=== PATIENT | male | born 1970 | race Caucasian/White ===

== ENCOUNTER → 2019-05-11 | Day surgery (SDC) | payer BC ==
[2019-05-08 13:06] LABS: BASOPHILS % 0.3 % (0.0-1.0); EOSINOPHILS # (AUTO) 0.5 (0.0-0.4); EOSINOPHILS % 5.8 % (0.0-6.0); HEMATOCRIT 39.8 % (38.2-49.6); HEMOGLOBIN 13.9 g/dL (14.0-18.0); LYMPHOCYTES # (AUTO) 1.9 (1.0-3.2); LYMPHOCYTES % 20.7 % (18.0-39.1); MEAN CORPUSCULAR HEMOGLOBIN 28.9 pg (28-32); MEAN CORPUSCULAR HGB CONC 34.9 g/dL (31-35); MEAN CORPUSCULAR VOLUME 82.7 fL (81-99); MONOCYTES # (AUTO) 1.2 (0.2-0.8); MONOCYTES % 13.2 % (4.4-11.3); NEUTROPHILS # (AUTO) 5.5 (2.1-6.9); NEUTROPHILS % 59.6 % (38.7-80.0); PLATELET COUNT 215 x10e3/uL (140-360); RED BLOOD COUNT 4.81 x10e6/uL (4.3-5.7); RED CELL DISTRIBUTION WIDTH 13.7 % (11.7-14.4)
[2019-05-08 13:22] LABS: ANION GAP 12.2 mmol/L (8-16); BLOOD UREA NITROGEN 17 mg/dL (7-26); BUN/CREATININE RATIO 14 (6-25); CALCIUM 9.1 mg/dL (8.4-10.2); CARBON DIOXIDE 25 mmol/L (22-29); CHLORIDE 101 mmol/L (98-107); CREATININE, SERUM 1.19 mg/dL (0.72-1.25); EST GLOMERULAR FILTRATION RATE > 60 ML/MIN (60-); GLUCOSE 154 mg/dL (74-118); POTASSIUM 4.2 mmol/L (3.5-5.1); SODIUM 134 mmol/L (136-145)
--- NOTE | 2019-05-08 13:39 | Diagnostic Imaging Report ---
EXAMINATION: CHEST 2 VIEWS INDICATION: Pre-operative COMPARISON: None FINDINGS: LINES/TUBES:None LUNGS:The lungs are well-inflated. No focal consolidation or pulmonary edema. PLEURA:No pleural effusion or pneumothorax. MEDIASTINUM:The cardiomediastinal silhouette appears normal in size and shape. BONES/SOFT TISSUES:No acute osseous injury. ABDOMEN:No free air under the diaphragm. IMPRESSION: No focal pneumonia or pulmonary edema. Signed by: Lili Gonzales MD on 05/08/2019 1:36 PM
[~2019-05-11] MED LIST: ATORVASTATIN CA10 MG PO; BUPIVACAINE HCL 0.5% INJ 30 ML VIAL INJ ONE; CRESTOR10 MG PO; DEXAMETHASONE SOD PHOS INJ 4 MG/ML VIAL ONE; FENTANYL CITRATE/PF 100MCG/2 ML INJ ONE; KETOROLAC TROMETHAMINE 30 MG/ML VIAL ONE; LIDOCAINE HCL 2% LOCAL INJ 5 ML SDV VIAL INJ ONE; LISINOPRIL-HCT1 EAC2 PO; LISINOPRIL2.5 MG PO; METFORMIN HCL500 MG PO; MIDAZOLAM HCL 2 MG/2 ML VIAL ONE; MUPIROCIN 2% OINT 22 GM TUBE ONE; NEOSTIGMINE 1 MG/ML 10ML VIAL ONE; ONDANSETRON HCL INJ 2MG/ML 2ML 2 MG/ML VIAL ONE; PROPOFOL IV EMULSION 10 MG/ML 20 ML VIAL ONE; SEVOFLURANE INHAL SOLN 250 ML PEN BTL ONE; VANCOMYCIN 1GM/NS 250 ML 250 ML ONE
--- OUTSIDE RECORDS SUMMARY | 2019-05-11 05:39 | XMS REPORT ---
[facility] Address Unknown Phone Unavailable Care Team Providers Care Bunch Trimmer Mold Name Role Phone MEGAN THOMPSON Unavailable Unavailable Problems This patient has no known problems. Allergies, Adverse Reactions, Alerts This patient has no known allergies or adverse reactions. Medications This patient has no known medications. Results Test Description Test Time Test Comments Text Results Atomic Results Result Comments CHEST 2 VIEWS 2019-05-08 13:35:00 [facility] [address] [place], [place] [address] Patient Name: NIRMAL CHUN MR #: [id number] : 1970 Age/Sex: 49/M Req #: [id number] Adm Physician: Ordered by: MEGAN THOMPSON DPM Report #: [id number] Location: OR Room/Bed: Procedure: [id number] DX/CHEST 2 VIEWS Exam Date: 05/08/19 Exam Time: 1252 REPORT STATUS: Signed EXAMINATION: CHEST 2 VIEWS INDICATION: Pre-operative COMPARISON: None FINDINGS: LINES/TUBES:None LUNGS:The lungs are well-inflated. No focal consolidation or pulmonary edema. PLEURA:No pleural effusion or pneumothorax. MEDIASTINUM:The cardiomediastinal silhouette appears normal in size and shape. BONES/SOFT TISSUES:No acute osseous injury. ABDOMEN:No free air under the diaphragm. IMPRESSION: No focal pneumonia or pulmonary edema. Signed by: Rene Pichardo MD on 05/08/2019 1:36 PM Dictated By: RENE PICHARDO MD [id number] Transcribed By: AVERY BERRY on 05/08/191335 COPY TO: MEGAN THOMPSON DPM
--- OUTSIDE RECORDS SUMMARY | 2019-05-11 05:39 | XMS REPORT ---
Author Author Gloria Alvarenga [facility] eClinicalWorks Address Unknown Phone Unavailable Care Team Providers Care Human Resources Communications Manager Name Role Phone Gloria Alvarenga CP Unavailable Allergies, Adverse Reactions, Alerts Substance Reaction Event Type penicillin rash Drug Allergy sulfa vomiting Drug Allergy Iodine anaphylaxis Drug Allergy Encounters Encounter Location Date DM, HTN, HLP [place] Jun 05, 2015 [place], DM, HTN, HLP, R-Ankle Pain Gloria Alvarenga [place], [place] November 27, 2015 [place] Sep 09, 2014 DM, HTN, HLP [place], [place] December 06, 2014 DM, HTN, HLP [place], [place] March 06, 2015 Problems Problem Type Condition ICD-9 Code Onset Dates Condition Status Assessment DM w/o complication type II E11.9 Active Assessment Achilles tendinitis of right lower extremity M76.61 Active Assessment Abnormal LFTs R79.89 Active Problem DM w/o complication type II E11.9 Active Problem Other and unspecified hyperlipidemia E78.5 Active Problem BMI 34.0-34.9,adult Z68.34 Active Assessment Routine medical exam Z00.00 Active Assessment Other dyspnea and respiratory abnormality R06.09 Active Problem Essential hypertension I10 Active Problem Vitamin D deficiency E55.9 Active Assessment Vitamin D deficiency E55.9 Active Assessment Essential hypertension I10 Active Assessment Other and unspecified hyperlipidemia E78.5 Active Medications Medication Code System Code Instructions Start Date End Date Status Dosage [facility] [address]-32 7.5 MG Orally Once a day November 27, 2015 Active 1 tablet with food prn pain [facility] [address]-23 500 mg Orally Once a day Jun 05, 2015 Active 1 tablet with evening meal Lisinopril-Hydrochlorothiazide [facility] [address]-08 10-12.5 MG Orally Once a day Jun 05, 2015 Active 1 tablet Vitamin D3 [facility] [place] [address]-18 2000 UNIT Orally Active Unknown Atorvastatin Calcium [facility] [place] [address]-50 10 mg by mouth once a day Active 1 tablet Zithromax Z-Vance [facility] [place] [address]-51 250 MG Orally Once a day Aug 28, 2015 Active 2 tablets on the first day, then 1 tablet daily for 4 days Social History Social History Element Qualifiers Date Reported Tobacco Use: . Are you a: current smoker, How many packs per day? < 1 pack per day November 27, 2015 Do you drink alcohol? . Status: Yes, Type: Beer, Liquor, Socially November 27, 2015 Vital Signs Date/Time: November 27, 2015 Weight 262 lbs Height 71 in Temperature 98.8 F Cardiac Monitoring Heart Rate 93 /min Blood Pressure Diastolic 91 mm Hg Blood Pressure Systolic 141 mm Hg Results ELECTROCARDIOGRAM, COMPLETE 4958 VITAMIN D, 25 [place] Summary Purpose eClinicalWorks Submission
--- OUTSIDE RECORDS SUMMARY | 2019-05-11 05:39 | XMS REPORT | Continuity of Care Document ---
Author Author [employer] Address Unknown Phone Unavailable Care Team Providers Care Ekg Monitor Tech Name Role Phone [employer] Unavailable Unavailable Problems Problem Status Onset Date Classification Date Reported Comments Source DM w/o complication type II Active Problem 09/15/2016 Gloria Alvarenga Achilles tendinitis of right lower extremity Active Diagnosis 12/01/2015 Gloria Alvarenga Abnormal LFTs Active Diagnosis 06/04/2016 Gloria Alvarenga Other and unspecified hyperlipidemia Active Problem 09/15/2016 Gloria Alvarenga BMI 34.0-34.9,adult Active Problem 06/04/2016 Gloria Alvarenga Routine medical exam Active Diagnosis 12/01/2015 Gloria Alvarenga Other dyspnea and respiratory abnormality Active Diagnosis 12/01/2015 Gloria Alvarenga Essential hypertension Active Diagnosis 09/15/2016 Gloria Alvarenga Vitamin D deficiency Active Diagnosis 09/15/2016 Gloria Alvarenga Vitamin D deficiency Active Diagnosis 03/23/2015 Gloria Alvarenga Weight gain Active Diagnosis 03/23/2015 Gloriaamanda Alvarenga Hyperlipidemia Active Problem 03/23/2015 Gloriaamanda Alvarenga Essential hypertension Active Problem 03/23/2015 Gloria Alvarenga Type II diabetes mellitus Active Problem 03/23/2015 Gloria Alvarenga Other chest pain Active Diagnosis 06/15/2015 Gloria Alvarenga Anger Active Diagnosis 06/15/2015 Gloria Alvarenga Shaking Active Diagnosis 06/15/2015 Gloria Alvarenga Tension-type headache, not intractable, unspecified chronicity pattern Active Diagnosis 06/15/2015 Gloria Alvarenga Weakness Active Diagnosis 06/15/2015 Gloria Alvarenga Change in bowel habit Active Diagnosis 06/04/2016 Gloria Alvarenga Hematuria Active Diagnosis 03/12/2016 Gloria Alvarenga Acute gastroenteritis Active Diagnosis 05/07/2016 Gloria Alvarenga Dehydration Active Diagnosis 05/07/2016 Gloria Alvarenga Acute renal failure, unspecified acute renal failure type Active Diagnosis 05/07/2016 Gloria Alvarenga Leg weakness, bilateral Active Diagnosis 09/15/2016 Gloria Alvarenga BMI 35.0-35.9,adult Active Diagnosis 09/15/2016 Gloria Alvarenga Somnolence Active Diagnosis 09/15/2016 Gloria Alvarenga Medications Medication Details Route Status Patient Instructions Ordering Provider Order Date Source Lisinopril-Hydrochlorothiazide 1 tablet Orally Active 10-12.5 MG Orally Once a day Alvarenga 09/02/2016 Gloria Alvarenga Rosuvastatin Calcium 1 tablet Orally Active 10 MG Orally Once a day Alvarenga 05/30/2016 Gloria Alvarenga Atorvastatin Calcium 1 tablet by mouth No Longer Active 10 mg by mouth once a day Alvarenga 05/27/2016 Gloria Alvarenga Meloxicam 1 tablet with food prn pain Orally Active 7.5 MG Orally Once a day [facility] 11/27/2015 Gloira Alvarenga Zithromax Z-Vance 2 tablets on the first day, then 1 tablet daily for 4 days Orally Active 250 MG Orally Once a day [facility] 08/28/2015 Gloria Alvarenga MetFORMIN HCl ER 1 tablet with evening meal Orally Active 500 mg Orally Once a day Alvarenga 06/05/2015 Gloria Alvarenga Lisinopril-Hydrochlorothiazide 1 tablet Orally Active 10-12.5 MG Orally Once a day [facility] 06/05/2015 Gloria Alvarenga Atorvastatin Calcium 1 tablet Orally Active 10 mg Orally Once a day [facility] 12/06/2014 Gloria Alvarenga Vitamin D3 Unknown Orally Active 2000 UNIT Orally Alvarenga Gloria Alvarenga Atorvastatin Calcium 1 tablet by mouth Active 10 mg by mouth once a day [facility] Gloria Alvarenga Lisinopril-Hydrochlorothiazide 1 tablet Orally Active 10-12.5 MG Orally Once a day Lyle Alvarenga Allergies, Adverse Reactions, Alerts Substance Category Reaction Severity Reaction type Status Date Reported Comments Source penicillin Adverse Reaction rash Adverse Reaction Active 09/02/2016 Gloria Alvarenga sulfa Adverse Reaction vomiting Adverse Reaction Active 09/02/2016 Gloria Alvarenga Iodine Adverse Reaction anaphylaxis Adverse Reaction Active 09/02/2016 Gloria Alvarenga Immunizations Immunization Date Given Site Status Last Updated Comments Source Influenza 05/27/2016 completed Gloria Alvarenga Results No Data Provided for This Section Pathology Reports No Data Provided for This Section Diagnostic Reports No Data Provided for This Section Consultation Notes No Data Provided for This Section Discharge Summaries No Data Provided for This Section History and Physicals No Data Provided for This Section Vital Signs Vital Sign Value Date Comments Source Weight 254 09/02/2016 Gloria Alvarenga Height 71 09/02/2016 Gloria Alvarenga Temperature Oral (F) 97.9 F 09/02/2016 Gloria Alvarenga Heart Rate 77 09/02/2016 Gloria Alvarenga Diastolic (mm Hg) 79 09/02/2016 Gloria Alvarenga Systolic (mm Hg) 132 09/02/2016 Gloria Alvarenga Weight 258 05/27/2016 Gloria Alvarenga Height 71 05/27/2016 Gloria Alvarenga Temperature Oral (F) 97.9 F 05/27/2016 Gloria Alvarenga Heart Rate 83 05/27/2016 Gloria Alvarenga Diastolic (mm Hg) 74 05/27/2016 Gloria Alvarenga Systolic (mm Hg) 132 05/27/2016 Gloria Alvarenga Weight 264 04/27/2016 Gloria Alvarenga Height 71 04/27/2016 Gloria Alvarenga Temperature Oral (F) 97.8 F 04/27/2016 Gloria Alvarenga Heart Rate 84 04/27/2016 Gloria Alvarenga Diastolic (mm Hg) 83 04/27/2016 Gloria Alvarenga Systolic (mm Hg) 148 04/27/2016 Gloria Alvarenga Weight 260 02/26/2016 Gloria Alvarenga Height 71 02/26/2016 Gloria Alvarenga Temperature Oral (F) 98.3 F 02/26/2016 Gloria Alvarenga Heart Rate 96 02/26/2016 Gloria Alvarenga Diastolic (mm Hg) 80 02/26/2016 Gloria Alvarenga Systolic (mm Hg) 121 02/26/2016 Gloria Alvarenga Weight 262 11/27/2015 Gloria Alvarenga Height 71 11/27/2015 Gloria Alvarenga Temperature Oral (F) 98.8 F 11/27/2015 Gloria Alvarenga Heart Rate 93 11/27/2015 Gloira Alvarenga Diastolic (mm Hg) 91 11/27/2015 Gloria Alvarenga Systolic (mm Hg) 141 11/27/2015 Gloria Alvarenga Weight 249 06/05/2015 Gloria Alvarenga Height 71 06/05/2015 Gloria Alvarenga Temperature Oral (F) 98.6 F 06/05/2015 Gloria Alvarenga Heart Rate 85 06/05/2015 Gloria Alvarenga Diastolic (mm Hg) 83 06/05/2015 Gloria Alvarenga Systolic (mm Hg) 136 06/05/2015 Gloria Alvarenga Weight 257 03/06/2015 Gloria Alvarenga Height 71 03/06/2015 Glroia Alvarenga Temperature Oral (F) 98.2 F 03/06/2015 Gloria Alvarenga Heart Rate 97 03/06/2015 Gloria Alvarenga Diastolic (mm Hg) 88 03/06/2015 Gloria Alvarenga Systolic (mm Hg) 135 03/06/2015 Gloria Alvarenga Encounters Location Location Details Encounter Type Encounter Number Reason For Visit Attending Provider ADM Date DC Date Status Source Gloria Al[place]renga [place], [place] MAR [id number] 09/09/2014 09/09/2014 Gloria Alvarenga MD, [place] [id number] 09/09/2014 09/09/2014 [place] [id number] 09/09/2014 09/09/2014 Gloria Alvarenga MD, [place] [id number] 09/09/2014 09/09/2014 [place] [id number] 09/09/2014 09/09/2014 Gloria Alvarenga MD, [place] [id number] 09/09/2014 09/09/2014 [place] [id number] 09/09/2014 09/09/2014 Gloria Alvarenga MD, [place] [id number] 09/09/2014 09/09/2014 Gloria Alvarenga MD, [place] DM, HTN, HLP [id number] 12/06/2014 12/06/2014 Gloria Alvarenga MD, [place] DM, HTN, HLP [id number] 12/06/2014 12/06/2014 Gloria Alvarenga MD, [place] DM, HTN, HLP [id number] 12/06/2014 12/06/2014 Gloria Alvarenga MD, [place] DM, HTN, HLP [id number] 12/06/2014 12/06/2014 Gloria Alvarenga MD, [place] DM, HTN, HLP [id number] 12/06/2014 12/06/2014 Gloria Alvarenga MD, [place] DM, HTN, HLP [id number] 12/06/2014 12/06/2014 Gloria Alvarenga MD, [place] DM, HTN, HLP [id number] 12/06/2014 12/06/2014 Gloria Alvarenga MD, [place] DM, HTN, HLP [id number] 12/06/2014 12/06/2014 Gloria Alvarenga MD, PA DM, HTN, HLP [id number] 03/06/2015 03/06/2015 Gloria Alvarenga MD, [place] DM, HTN, HLP [id number] 03/06/2015 03/06/2015 Gloria Alvarenga MD, [place] DM, HTN, HLP [id number] 03/06/2015 03/06/2015 Gloria Alvarenga MD, [place] DM, HTN, HLP [id number] 03/06/2015 03/06/2015 Gloria Alvarenga MD, [place] DM, HTN, HLP [id number] 03/06/2015 03/06/2015 Gloria Alvarenga MD, [place] DM, HTN, HLP [id number] 03/06/2015 03/06/2015 Gloria Alvarenga MD, [place] DM, HTN, HLP [id number] 03/06/2015 03/06/2015 Gloria Alvarenga MD, [place] DM, HTN, HLP [id number] 03/06/2015 03/06/2015 Gloria Alvarenga MD, [place] DM, HTN, HLP [id number] 06/05/2015 06/05/2015 Gloria Alvarenga MD, [place] DM, HTN, HLP [id number] 06/05/2015 06/05/2015 Gloria Alvarenga MD, [place] DM, HTN, HLP [id number] 06/05/2015 06/05/2015 Gloria Alvarenga MD, [place] DM, HTN, HLP [id number] 06/05/2015 06/05/2015 Gloria Alvarenga MD, PA DM, HTN, HLP [id number] 06/05/2015 06/05/2015 Gloria Alvarenga MD, [place] DM, HTN, HLP [id number] 06/05/2015 06/05/2015 Gloria Alvarenga MD, [place] DM, HTN, HLP [id number] 06/05/2015 06/05/2015 Gloria Alvarenga MD, PA PE, DM, HTN, HLP, R-Ankle Pain [id number] 11/27/2015 11/27/2015 Gloria Alvarenga MD, PA PE, DM, HTN, HLP, R-Ankle Pain [id number] 11/27/2015 11/27/2015 Gloria Alvarenga MD, PA PE, DM, HTN, HLP, R-Ankle Pain [id number] 11/27/2015 11/27/2015 Gloria Alvarenga MD, PA PE, DM, HTN, HLP, R-Ankle Pain [id number] 11/27/2015 11/27/2015 Gloria Alvarenga MD, PA PE, DM, HTN, HLP, R-Ankle Pain [id number] 11/27/2015 11/27/2015 Gloria Alvarenga MD, PA PE, DM, HTN, HLP, R-Ankle Pain [id number] 11/27/2015 11/27/2015 Gloria Alvarenga MD, PA DM, HTN, HLP [id number] 02/26/2016 02/26/2016 Gloria Alvarenga MD, PA DM, HTN, HLP [id number] 02/26/2016 02/26/2016 Gloria Alvarenga MD, PA DM, HTN, HLP [id number] 02/26/2016 02/26/2016 Gloria Alvarenga MD, PA DM, HTN, HLP [id number] 02/26/2016 02/26/2016 Gloria Alvarenga MD, [place] US request [id number] 03/04/2016 03/04/2016 Gloria Alvarenga MD, [place] US request [id number] 03/04/2016 03/04/2016 Gloria Alvarenga MD, [place] US request [id number] 03/04/2016 03/04/2016 Gloria Alvarenga MD, [place] US request [id number] 03/04/2016 03/04/2016 Gloria Alvarenga MD, PA US request [id number] 03/04/2016 03/04/2016 Gloria Alvarenga MD, PA F/U from ER for Severe Dehydration [id number] 04/27/2016 04/27/2016 Gloria Alvarenga MD, PA F/U from ER for Severe Dehydration [id number] 04/27/2016 04/27/2016 Gloria Alvarenga MD, PA F/U from ER for Severe Dehydration [id number] 04/27/2016 04/27/2016 Gloria Alvarenga MD, PA DM, HTN, HLP [id number] 05/27/2016 05/27/2016 Gloria Alvarenga MD, PA DM, HTN, HLP [id number] 05/27/2016 05/27/2016 Gloria Alvarenga MD, PA DM, HTN, HLP, Vit D [id number] 09/02/2016 09/02/2016 Gloria Alvarenga Procedures No Data Provided for This Section Assessment and Plan No Data Provided for This Section Plan of Care No Data Provided for This Section Social History Social History Date Source Social History ElementQualifiersDate Reported Tobacco Use: . Are you a: current smoker, How many packs per day? < 1 pack per day once in a while Sep 02, 2016 Do you drink alcohol? . Status: Yes, Type: Beer, Liquor, Socially Sep 02, 2016 09/02/2016 Gloria Alvarenga Family History No Data Provided for This Section Advance Directives No Data Provided for This Section Functional Status No Data Provided for This Section
--- OUTSIDE RECORDS SUMMARY | 2019-05-11 05:39 | XMS REPORT ---
Author Author Gloria Alvarenga [facility] eClinicalWorks Address Unknown Phone Unavailable Care Team Providers Care Vehicle Operator Name Role Phone Gloria Alvarenga CP Unavailable Allergies, Adverse Reactions, Alerts Substance Reaction Event Type penicillin rash Drug Allergy sulfa vomiting Drug Allergy Iodine anaphylaxis Drug Allergy Encounters Encounter Location Date DM, HTN, HLP Gloria Alvarenga MD, [place] Jun 05, 2015 [place], DM, HTN, HLP, R-Ankle Pain Gloria Alvarenga MD, [place] November 27, 2015 [place] request Gloria Alvarenga [place], [place] March 04, 2016 DM, HTN, HLP Gloria Alvarenga MD, [place] February 26, 2016 [place] Gloria Alvarenga MD, [place] Sep 09, 2014 DM, HTN, HLP Gloria Alvarenga MD, [place] December 06, 2014 DM, HTN, HLP Gloria Alvarenga MD, [place] March 06, 2015 F/U from ER for Severe Dehydration Gloria Alvarenga MD, [place] Apr 27, 2016 Problems Problem Type Condition ICD-9 Code Onset Dates Condition Status Assessment Essential hypertension I10 Active Assessment Acute gastroenteritis K52.9 Active Assessment DM w/o complication type II E11.9 Active Problem DM w/o complication type II E11.9 Active Problem Other and unspecified hyperlipidemia E78.5 Active Problem BMI 34.0-34.9,adult Z68.34 Active Assessment Dehydration E86.0 Active Assessment Acute renal failure, unspecified acute renal failure type N17.9 Active Problem Essential hypertension I10 Active Problem Vitamin D deficiency E55.9 Active Medications Medication Code System Code Instructions Start Date End Date Status Dosage [facility]MIN [facility] [address]-02 500 mg Orally Once a day Jun 05, 2015 Active 1 tablet with evening meal Atorvastatin Calcium [facility] [address]-27 10 mg by mouth once a day Active 1 tablet Meloxicam [facility] [address]-86 7.5 MG Orally Once a day November 27, 2015 Active 1 tablet with food prn pain Lisinopril-Hydrochlorothiazide [facility] [address]-11 10-12.5 MG Orally Once a day Jun 05, 2015 Active 1 tablet Vitamin D3 [facility] [address]-99 2000 UNIT Orally Active Unknown Social History Social History Element Qualifiers Date Reported Tobacco Use: . Are you a: current smoker, How many packs per day? < 1 pack per day Apr 27, 2016 Do you drink alcohol? . Status: Yes, Type: Beer, Liquor, Socially Apr 27, 2016 Vital Signs Date/Time: Apr 27, 2016 Weight 264 lbs Height 71 in Temperature 97.8 F Cardiac Monitoring Heart Rate 84 /min Blood Pressure Diastolic 83 mm Hg Blood Pressure Systolic 148 mm Hg Results 9179 COMPREHENSIVE METABOLIC PANEL - CMP Summary Purpose eClinicalWorks Submission
--- OUTSIDE RECORDS SUMMARY | 2019-05-11 05:39 | XMS REPORT ---
Author Author Gloria Alvarenga [facility] eClinicalWorks Address Unknown Phone Unavailable Care Team Providers Care Patent Litigation Associate Name Role Phone Gloria Alvarenga CP Unavailable [...] Gloria Alvarenga MD, PA Apr 27, 2016 DM, HTN, HLP Gloria Alvarenga MD, [place] May 27, 2016 Problems Problem Type Condition ICD-9 Code Onset Dates Condition Status Assessment Vitamin D deficiency E55.9 Active Assessment Other and unspecified hyperlipidemia E78.5 Active Assessment Essential hypertension I10 Active Assessment Abnormal LFTs R79.89 Active Problem DM w/o complication type II E11.9 Active Problem Other and unspecified hyperlipidemia E78.5 Active Problem BMI 34.0-34.9,adult Z68.34 Active Assessment Change in bowel habit R19.4 Active Assessment DM w/o complication type II E11.9 Active Problem Essential hypertension I10 Active Problem Vitamin D deficiency E55.9 Active Medications Medication Code System Code Instructions Start Date End Date Status Dosage Lisinopril-Hydrochlorothiazide [facility] [address]-95 10-12.5 MG Orally Once a day Active 1 tablet MetFORMIN HCl ER [facility] [address]-82 500 mg Orally Once a day Jun 05, 2015 Active 1 tablet with evening meal Atorvastatin Calcium [facility] [address]-12 10 mg by mouth once a day May 27, 2016 Inactive 1 tablet Meloxicam [facility] [address]-21 7.5 MG Orally Once a day November 27, 2015 Active 1 tablet with food prn pain Rosuvastatin Calcium [facility] [address]-17 10 MG Orally Once a day May 30, 2016 Active 1 tablet Vitamin D3 [facility] [address]-15 2000 UNIT Orally Active Unknown Social History Social History Element Qualifiers Date Reported Tobacco Use: . Are you a: current smoker, How many packs per day? < 1 pack per day May 27, 2016 Do you drink alcohol? . Status: Yes, Type: Beer, Liquor, Socially May 27, 2016 Vital Signs Date/Time: May 27, 2016 Weight 258 lbs Height 71 in Temperature 97.9 F Cardiac Monitoring Heart Rate 83 /min Blood Pressure Diastolic 74 mm Hg Blood Pressure Systolic 132 mm Hg Results 4958 VITAMIN D, 25 [place] Immunizations Vaccine Administration Date Influenza May 27, 2016 Summary Purpose eClinicalWorks Submission
--- OUTSIDE RECORDS SUMMARY | 2019-05-11 05:39 | XMS REPORT ---
Author Author Gloria Alvarenga [facility] [place] eClinicalWorks Address Unknown Phone Unavailable Care Team Providers Care Semiconductor Wafers Marker Name Role Phone Gloria Alvarenga CP Unavailable [...] Gloria Alvarenga MD, [place] March 06, 2015 DM, HTN, HLP, Vit D Gloria Alvarenga MD, [place] Sep 02, 2016 F/U from ER for Severe Dehydration Gloria Alvarenga MD, [place] Apr 27, 2016 DM, HTN, HLP Gloria Alvarenga MD, [place] May 27, 2016 Problems Problem Type Condition ICD-9 Code Onset Dates Condition Status Assessment Leg weakness, bilateral R29.898 Active Assessment Essential hypertension I10 Active Assessment Vitamin D deficiency E55.9 Active Assessment BMI 35.0-35.9,adult Z68.35 Active Assessment Somnolence R40.0 Active Problem DM w/o complication type II E11.9 Active Problem Other and unspecified hyperlipidemia E78.5 Active Problem BMI 35.0-35.9,adult Z68.35 Active Assessment DM w/o complication type II E11.9 Active Assessment Other and unspecified hyperlipidemia E78.5 Active Problem Essential hypertension I10 Active Problem Vitamin D deficiency E55.9 Active Medications Medication Code System Code Instructions Start Date End Date Status Dosage Lisinopril-Hydrochlorothiazide [facility] [address]-88 10-12.5 MG Orally Once a day Sep 02, 2016 Active 1 tablet Rosuvastatin Calcium [facility] [address]-77 10 MG Orally Once a day May 30, 2016 Active 1 tablet MetFORMIN HCl ER [facility] [address]-18 500 mg Orally Once a day Jun 05, 2015 Active 1 tablet with evening meal Vitamin D3 [facility] [address]-20 2000 UNIT Orally Active Unknown Social History Social History Element Qualifiers Date Reported Tobacco Use: . Are you a: current smoker, How many packs per day? < 1 pack per day once in a while Sep 02, 2016 Do you drink alcohol? . Status: Yes, Type: Beer, Liquor, Socially Sep 02, 2016 Vital Signs Date/Time: Sep 02, 2016 Weight 254 lbs Height 71 in Temperature 97.9 F Cardiac Monitoring Heart Rate 77 /min Blood Pressure Diastolic 79 mm Hg Blood Pressure Systolic 132 mm Hg Results 4958 VITAMIN D, 25 OH Summary Purpose eClinicalWorks Submission
--- OUTSIDE RECORDS SUMMARY | 2019-05-11 05:39 | XMS REPORT ---
Author Author Gloria Alvarenga [facility] [place] eClinicalWorks Address Unknown Phone Unavailable Care Team Providers Care Curtain Hemmer Automatic Name Role Phone Gloria Alvarenga CP Unavailable Allergies, Adverse Reactions, Alerts Substance Reaction Event Type penicillin rash Drug Allergy sulfa vomiting Drug Allergy Iodine anaphylaxis Drug Allergy Encounters Encounter Location Date [place] Gloria Al[place], [place] Sep 09, 2014 DM, HTN, HLP Gloria Alvarenga [place], [place] December 06, 2014 DM, HTN, HLP Gloria Alvarenga [place], [place] March 06, 2015 Problems Problem Type Condition ICD-9 Code Onset Dates Condition Status Assessment Vitamin D deficiency 268.9 Active Assessment Weight gain 783.1 Active Problem Hyperlipidemia 272.4 Active Problem Essential hypertension 401.9 Active Problem Type II diabetes mellitus 250.00 Active Assessment Essential hypertension 401.9 Active Assessment Hyperlipidemia 272.4 Active Problem Vitamin D deficiency 268.9 Active Assessment Type II diabetes mellitus 250.00 Active Medications Medication Code System Code Instructions Start Date End Date Status Dosage Atorvastatin Calcium [facility] [address]-02 10 mg Orally Once a day December 06, 2014 Active 1 tablet Social History Social History Element Qualifiers Date Reported Tobacco Use: . Are you a: current smoker, How many packs per day? 1 pack per day, At what age did you start smoking? 6 March 06, 2015 Do you drink alcohol? . Status: Yes, Type: Beer, Liquor, Socially March 06, 2015 Vital Signs Date/Time: March 06, 2015 Weight 257 lbs Height 71 in Temperature 98.2 F Cardiac Monitoring Heart Rate 97 /min Blood Pressure Diastolic 88 mm Hg Blood Pressure Systolic 135 mm Hg Results 173 LIPID PANEL HDL CHOLESTEROL(->39 MG/DL) 34 CALCULATED LDL CHOL(-<100 MG/DL) 118 RISK RATIO LDL/HDL(-<3.55 RATIO) 3.46 CHOLESTEROL(-<200 MG/DL) 187 TRIGLYCERIDES(-<150 MG/DL) 177 2708 HEMOGLOBIN A1c - HgA1C HEMOGLOBIN A1c(-4.0-5.6 %) 6.4 4958 VITAMIN D, 25 OH VITAMIN D, 25 OH(-SEE BELOW NG/ML) 24 9179 COMPREHENSIVE METABOLIC PANEL - CMP SODIUM(-133-146 MEQ/L) 135 CALCULATED BUN/CREAT(-6-28 RATIO) 13 CHLORIDE(-97-110 MEQ/L) 102 POTASSIUM(-3.5-5.3 MEQ/L) 4.1 CALCIUM(-8.5-10.5 MG/DL) 9.4 PROTEIN, TOTAL(-6.0-8.4 G/DL) 7.0 CARBON DIOXIDE(-18-30 MEQ/L) 25 CALCULATED A/G RATIO(-0.9-2.5 RATIO) 1.6 eGFR AMER.(->60 ML/MIN/1.73) 80 BILIRUBIN, TOTAL(-0.1-1.3 MG/DL) 0.7 eGFR NON- AMER.(->60 ML/MIN/1.73) 66 BUN(-8-25 MG/DL) 15 ALBUMIN(-2.9-5.0 G/DL) 4.3 CALCULATED GLOBULIN(-2.0-3.8 G/DL) 2.7 CREATININE(-0.8-1.4 MG/DL) 1.2 SGPT (ALT)(-7-56 U/L) 42 GLUCOSE(-65-100 MG/DL) 141 ALKALINE PHOSPHATASE(-30-132 U/L) 100 SGOT (AST)(-5-35 U/L) 21 Summary Purpose eClinicalWorks Submission
--- OUTSIDE RECORDS SUMMARY | 2019-05-11 05:39 | XMS REPORT ---
Author Author Gloria Alvarenga Organization eClinicalWorks Address Unknown Phone Unavailable Care Team Providers Care Public Health Doctor Name Role Phone Gloria Alvarenga CP Unavailable Encounters Encounter Location Date DM, HTN, HLP Gloria Al[place]renga [place], [place] Jun 05, 2015 [place], DM, HTN, HLP, R-Ankle Pain Gloria Alvarenga MD, [place] November 27, 2015 US request Gloria Alvarenga MD, [place] March 04, 2016 [place] Gloria Alvarenga MD, [place] Sep 09, 2014 DM, HTN, HLP Gloria Alvarenga MD, [place] December 06, 2014 DM, HTN, HLP Gloria Alvarenga MD, [place] March 06, 2015 Problems Problem Type Condition ICD-9 Code Onset Dates Condition Status Problem DM w/o complication type II E11.9 Active Problem Other and unspecified hyperlipidemia E78.5 Active Problem BMI 34.0-34.9,adult Z68.34 Active Assessment Abnormal LFTs R79.89 Active Problem Essential hypertension I10 Active Problem Vitamin D deficiency E55.9 Active Social History Social History Element Qualifiers Date Reported Tobacco Use: . Are you a: current smoker, How many packs per day? < 1 pack per day February 27, 2016 Do you drink alcohol? . Status: Yes, Type: Beer, Liquor, Socially February 27, 2016 Summary Purpose eClinicalWorks Submission
--- OUTSIDE RECORDS SUMMARY | 2019-05-11 05:39 | XMS REPORT ---
Author Author Gloria Alvarenga [facility] eClinicalWorks Address Unknown Phone Unavailable Care Team Providers Care Paper Stripper Name Role Phone Gloria Alvarenga CP Unavailable Allergies, Adverse Reactions, Alerts Substance Reaction Event Type penicillin rash Drug Allergy sulfa vomiting Drug Allergy Iodine anaphylaxis Drug Allergy Encounters Encounter Location Date DM, HTN, HLP Gloria Alvarenga MD, PA Jun 05, 2015 [place] Gloria Alvarenga MD, [place] Sep 09, 2014 DM, HTN, HLP Gloria Alvarenga MD, [place] December 06, 2014 DM, HTN, HLP Gloria Alvarenga MD, [place] March 06, 2015 Problems Problem Type Condition ICD-9 Code Onset Dates Condition Status Assessment DM w/o complication type II E11.9 Active Assessment Other chest pain R07.89 Active Assessment Anger R45.4 Active Problem Other and unspecified hyperlipidemia E78.5 Active Problem Essential hypertension I10 Active Problem DM w/o complication type II E11.9 Active Assessment Shaking R25.1 Active Assessment Tension-type headache, not intractable, unspecified chronicity pattern G44.209 Active Problem Vitamin D deficiency E55.9 Active Assessment Weakness R53.1 Active Assessment Vitamin D deficiency E55.9 Active Assessment Essential hypertension I10 Active Assessment Other and unspecified hyperlipidemia E78.5 Active Medications Medication Code System Code Instructions Start Date End Date Status Dosage Lisinopril-Hydrochlorothiazide [facility] [address]-76 10-12.5 MG Orally Once a day Jun 05, 2015 Active 1 tablet MetFORMIN HCl [facility] [address]-14 500 mg Orally Once a day Jun 05, 2015 Active 1 tablet with evening meal Vitamin D3 [facility] [address]-98 2000 UNIT Orally Active Unknown Atorvastatin Calcium [facility] [address]-66 10 mg Orally Once a day December 06, 2014 Active 1 tablet Social History Social History Element Qualifiers Date Reported Tobacco Use: . Are you a: current smoker, How many packs per day? < 1 pack per day Jun 05, 2015 Do you drink alcohol? . Status: Yes, Type: Beer, Liquor, Socially Jun 05, 2015 Vital Signs Date/Time: Jun 05, 2015 Weight 249 lbs Height 71 in Temperature 98.6 F Cardiac Monitoring Heart Rate 85 /min Blood Pressure Diastolic 83 mm Hg Blood Pressure Systolic 136 mm Hg Results 173 LIPID PANEL HDL CHOLESTEROL(->39 MG/DL) 35 CALCULATED LDL CHOL(-<100 MG/DL) 116 RISK RATIO LDL/HDL(-<3.55 RATIO) 3.30 CHOLESTEROL(-<200 MG/DL) 181 TRIGLYCERIDES(-<150 MG/DL) 152 1000 CBC W/AUTO DIFF PLATELET COUNT(-130-400 K/UL) 240 MCV(-80.0-100.0 fL) 86.6 HEMATOCRIT(-37.0-49.0 %) 45.3 BASOPHILS(-0-2 %) 0 MCHC(-32.0-35.5 G/DL) 34.4 EOSINOPHILS(-0-7 %) 4 MCH(-27.0-34.0 PG) 29.8 MONOCYTES(-4-13 %) 8 WBC(-4.0-11.0 K/UL) 9.6 HEMOGLOBIN(-13.0-17.0 G/DL) 15.6 RBC(-4.10-5.70 M/UL) 5.23 LYMPHOCYTES(-19-48 %) 27 RDW(-11.0-15.0 %) 13.6 NEUTROPHILS(-40-74 %) 60 4958 VITAMIN D, 25 OH VITAMIN D, 25 OH(-SEE BELOW NG/ML) 26 9179 COMPREHENSIVE METABOLIC PANEL - CMP SODIUM(-133-146 MEQ/L) 138 CALCULATED BUN/CREAT(-6-28 RATIO) 12 CHLORIDE(-97-110 MEQ/L) 103 POTASSIUM(-3.5-5.3 MEQ/L) 4.1 CALCIUM(-8.5-10.5 MG/DL) 9.1 PROTEIN, TOTAL(-6.0-8.4 G/DL) 7.3 CARBON DIOXIDE(-18-30 MEQ/L) 24 CALCULATED A/G RATIO(-0.9-2.5 RATIO) 1.4 eGFR AMER.(->60 ML/MIN/1.73) 98 BILIRUBIN, TOTAL(-0.1-1.3 MG/DL) 0.6 eGFR NON- AMER.(->60 ML/MIN/1.73) 81 BUN(-8-25 MG/DL) 12 ALBUMIN(-2.9-5.0 G/DL) 4.2 CALCULATED GLOBULIN(-2.0-3.8 G/DL) 3.1 CREATININE(-0.8-1.4 MG/DL) 1.0 SGPT (ALT)(-7-56 U/L) 49 GLUCOSE(-65-100 MG/DL) 158 ALKALINE PHOSPHATASE(-30-132 U/L) 113 SGOT (AST)(-5-35 U/L) 27 2830 TESTOSTERONE TESTOSTERONE REF RANGE(-SEE ABOVE ) SEE ABOVE TESTOSTERONE(-300-890 NG/DL) 236 2708 HEMOGLOBIN A1c - HgA1C HEMOGLOBIN A1c(-4.0-5.6 %) 6.7 2835 TSH TSH(-0.5-4.7 UIU/ML) 1.8 Summary Purpose eClinicalWorks Submission
--- OUTSIDE RECORDS SUMMARY | 2019-05-11 05:39 | XMS REPORT ---
Author Author Gloria Alvarenga [facility] eClinicalWorks Address Unknown Phone Unavailable Care Team Providers Care Registered Safety Engineer Name Role Phone Gloria Alvarenga CP Unavailable [...] ICD-9 Code Onset Dates Condition Status Assessment Hematuria R31.9 Active Assessment Essential hypertension I10 Active Assessment Vitamin D deficiency E55.9 Active Problem DM w/o complication type II E11.9 Active Problem Other and unspecified hyperlipidemia E78.5 Active Problem BMI 34.0-34.9,adult Z68.34 Active Assessment DM w/o complication type II E11.9 Active Assessment Other and unspecified hyperlipidemia E78.5 Active Problem Essential hypertension I10 Active Problem Vitamin D deficiency E55.9 Active Medications Medication Code System Code Instructions Start Date End Date Status Dosage Lisinopril-Hydrochlorothiazide [facility] [address]-01 10-12.5 MG Orally Once a day Jun 05, 2015 Active 1 tablet Atorvastatin Cal[facility] [address]-57 10 mg by mouth once a day Active 1 tablet Vitamin D3 [facility] [address]-13 2000 UNIT Orally Active Unknown Meloxicam [facility] [address]-36 7.5 MG Orally Once a day November 27, 2015 Active 1 tablet with food prn pain MetFORMIN HCl ER [facility] [address]-72 500 mg Orally Once a day Jun 05, 2015 Active 1 tablet with evening meal Social History Social History Element Qualifiers Date Reported Tobacco Use: . Are you a: current smoker, How many packs per day? < 1 pack per day February 27, 2016 Do you drink alcohol? . Status: Yes, Type: Beer, Liquor, Socially February 27, 2016 Vital Signs Date/Time: February 26, 2016 Weight 260 lbs Height 71 in Temperature 98.3 F Cardiac Monitoring Heart Rate 96 /min Blood Pressure Diastolic 80 mm Hg Blood Pressure Systolic 121 mm Hg Results 4958 VITAMIN D, 25 OH Summary Purpose eClinicalWorks Submission
[2019-05-11 10:30] VITALS: BP 103/65
--- NOTE | 2019-05-12 19:52 | Operative Report ---
DATE OF PROCEDURE: 05/11/2019 SURGEON: Jorge Mccormick DPM PREOPERATIVE DIAGNOSES: 1. Nerve entrapment of tibial nerve, right foot. 2. Nerve entrapment of medial and lateral plantar nerves, right foot. 3. Nerve entrapment of calcaneal nerve, right foot. 4. Nerve entrapment of deep peroneal nerve, right foot. POSTOPERATIVE DIAGNOSES: 1. Nerve entrapment of tibial nerve, right foot. 2. Nerve entrapment of medial and lateral plantar nerves, right foot. 3. Nerve entrapment of calcaneal nerve, right foot. 4. Nerve entrapment of deep peroneal nerve, right foot. TITLE OF OPERATION: 1. Neurolysis with microscopic evaluation and dissection of tibial nerve, right foot. 2. Neurolysis with microscopic evaluation and dissection of medial and lateral plantar nerves on the right foot as well as calcaneal nerve, right foot. 3. Neurolysis with microscopic evaluation and dissection of deep peroneal nerve, right foot. ANESTHESIA: General endotracheal. HEMOSTASIS: Right thigh tourniquet at 350 mmHg. PROCEDURE IN DETAIL: The patient was taken to the operating room in a mildly sedated state, placed on the operating table in supine position. Following induction of general anesthetic, the right lower extremity was elevated to 60 degrees to exsanguinate before inflating the pneumatic thigh tourniquet to 350 mmHg to create good hemostasis. The right lower extremity was placed on the operating table prior to performing following procedure: Neurolysis of the tibial nerve on the right foot: An approximate 6 cm curvilinear incision was made along the posterior aspect of the medial malleolus revealing the entrapped tibial nerve. This J-shaped incision was dissected down to the actual tarsal tunnel where the nerve itself was entrapped. The tibial nerve was identified and released from all surrounding and constricting materials microscopically and sharply utilizing the appropriate technique and bipolar Bovie. The nerve itself was released from all adhesions and traced down to its extension into the keshia pedis and heel itself. At this point, utilizing further microscopic evaluation, medial and lateral plantar nerves were identified and similarly treated with neurolysis and the calcaneal nerve was also treated with neurolysis. The areas of surgery were all irrigated with copious amounts of sterile saline solution. A TLS drain was installed. Deep closure with 3-0 Vicryl, subcutaneous closure with 4-0 Vicryl, and skin closure with 4-0 nylon over TLS drain. Attention was then directed to the deep peroneal nerve on the dorsum of the foot. Linear incision made overlying the deep peroneal nerve entrapment and the extensor hallucis brevis was identified and tenotomized, which allowed revelation of the entrapped deep peroneal nerve underlying the fossa, that fossa was released and the tendon dissected from harm's way to allow for the exposure of the deep peroneal nerve, that nerve itself was freed and all deep tissues were treated with microscopic evaluation to further enhance the functionality and viability of the remaining nerve segments. This area was then irrigated with copious amounts of sterile saline solution. Deep closure with 3-0 Vicryl and subcutaneous closure with 4-0 Prolene. The areas of surgery were then blocked with 0.5% Marcaine and Decadron [place]. The appropriate mildly compressive dressings were applied. Release of the pneumatic thigh tourniquet showed a normal hyperemic flush to all digits of the right foot. The patient left the operating room, vital signs stable in apparent satisfactory condition, having tolerated both anesthetic and procedure very well. ALEC Lewis/CADEN /[id number]
== END | disposition home or self-care (01) ==
LOC: OR 05:36
PROVIDERS: ATTEND Podiatrist Foot Surgery
DX: G57.51 Tarsal tunnel syndrome, right lower limb (principal); G58.8 Other specified mononeuropathies; I10 Essential (primary) hypertension; E11.9 Type 2 diabetes mellitus without complications; F17.220 Nicotine dependence, chewing tobacco, uncomplicated; Z01.810 Encounter for preprocedural cardiovascular examination; Z01.812 Encounter for preprocedural laboratory examination; Z01.818 Encounter for other preprocedural examination; Z88.0 Allergy status to penicillin; Z88.2 Allergy status to sulfonamides; Z91.041 Radiographic dye allergy status; Z79.84 Long term (current) use of oral hypoglycemic drugs
CPT/HCPCS: 28035; 36415 ×2; 64704 ×4; 64727 ×2; 71046; 80048; 82948; 85025; 93005; J1100; J1885; J2001; J2250; J2405; J2704; J2710; J3010; J3370

== ENCOUNTER 2021-08-24 19:04 | Emergency (ER) | payer BC ==
[~2021-08-24] VITALS: Ht 185.4 cm; Wt 108.9 kg
[~2021-08-24 19:04] MED LIST changes: -BUPIVACAINE HCL 0.5% INJ 30 ML VIAL INJ ONE; -DEXAMETHASONE SOD PHOS INJ 4 MG/ML VIAL ONE; -FENTANYL CITRATE/PF 100MCG/2 ML INJ ONE; -KETOROLAC TROMETHAMINE 30 MG/ML VIAL ONE; -LIDOCAINE HCL 2% LOCAL INJ 5 ML SDV VIAL INJ ONE; -MIDAZOLAM HCL 2 MG/2 ML VIAL ONE; -MUPIROCIN 2% OINT 22 GM TUBE ONE; -NEOSTIGMINE 1 MG/ML 10ML VIAL ONE; -ONDANSETRON HCL INJ 2MG/ML 2ML 2 MG/ML VIAL ONE; -PROPOFOL IV EMULSION 10 MG/ML 20 ML VIAL ONE; -SEVOFLURANE INHAL SOLN 250 ML PEN BTL ONE; -VANCOMYCIN 1GM/NS 250 ML 250 ML ONE
[2021-08-24] MEDS ORDERED: ALBUTEROL SULFATE HFA 8GM INHALATION AEROSOL INH PRN (19:30)
[2021-08-24] MEDS ORDERED: METHYLPREDNISOLONE SOD SUCC 125 MG/2ML VIAL IM ONE (19:30)
[2021-08-24 21:04] LABS: BASOPHILS # (AUTO) 0.1 (0.0-0.1); BASOPHILS % 0.6 % (0.0-1.0); EOSINOPHILS # (AUTO) 0.4 (0.0-0.4); EOSINOPHILS % 4.3 % (0.0-6.0); HEMATOCRIT 41.1 % (38.2-49.6); HEMOGLOBIN 13.7 g/dL (14.0-18.0); LYMPHOCYTES # (AUTO) 1.2 (1.0-3.2); LYMPHOCYTES % 11.3 % (18.0-39.1); MEAN CORPUSCULAR HEMOGLOBIN 28.4 pg (28-32); MEAN CORPUSCULAR HGB CONC 33.3 g/dL (31-35); MEAN CORPUSCULAR VOLUME 85.3 fL (81-99); NEUTROPHILS # (AUTO) 7.6 (2.1-6.9); NEUTROPHILS % 73.3 % (38.7-80.0); PLATELET COUNT 210 x10e3/uL (140-360); RED BLOOD COUNT 4.82 x10e6/uL (4.3-5.7); RED CELL DISTRIBUTION WIDTH 13.9 % (11.7-14.4)
[2021-08-24 21:17] LABS: ALBUMIN 3.7 g/dL (3.5-5.0); ALBUMIN/GLOBULIN RATIO 1.3 (0.8-2.0); ANION GAP 10.4 mmol/L (8-16); CALCIUM 8.9 mg/dL (8.4-10.2); CREATININE, SERUM 1.2 mg/dL (0.72-1.25); POTASSIUM 4.4 mmol/L (3.5-5.1)
[2021-08-24 22:16] VITALS: BP 139/74
== END 2021-08-24 22:15 | disposition home or self-care (01) ==
LOC: ER 20:02
DX: J18.9 Pneumonia, unspecified organism (principal); Z88.0 Allergy status to penicillin; Z88.2 Allergy status to sulfonamides; Z91.041 Radiographic dye allergy status; Z20.822 Contact with and (suspected) exposure to COVID-19
CPT/HCPCS: 36415; 71045; 80053; 82550; 82553; 84484; 85025; 93005; 99284; U0002